=== PATIENT | female | born 1985 | race Caucasian/White ===

== ENCOUNTER 2023-11-12 17:25 | Emergency (ER) | payer OTHER ==
[~2023-11-12] VITALS: Ht 172.7 cm; Wt 77.3 kg
[2023-11-12] MEDS ORDERED: PROPARACAINE 0.5% OPHTH SOL 15ML OS ONE (17:45)
[2023-11-12] MEDS ORDERED: FLUORESCEIN OPHTH 1MG STRIP OS ONE (17:45)
[2023-11-12] MEDS ORDERED: OFLOXACIN 0.3 % (OCUFLOX) OPTH SOL 5ML OS ONE (18:30)
[2023-11-12] MEDS ORDERED: IBUP-1022 PO (19:02)
[2023-11-12] MEDS ORDERED: OCUF0.25 OP (19:02)
[2023-11-12 19:35] VITALS: BP 132/92; TEMP 97.5; O2SAT 100
== END 2023-11-12 19:38 | disposition home or self-care (01) ==
LOC: M ED 17:25
DX: S05.02XA Injury of conjunctiva and corneal abrasion without foreign body, left eye, initial encounter (principal); F10.10 Alcohol abuse, uncomplicated; Y92.9 Unspecified place or not applicable; Y93.9 Activity, unspecified; Y99.9 Unspecified external cause status; X58.XXXA Exposure to other specified factors, initial encounter